=== PATIENT | male | born 1955 | race American Indian/Alaskan Native ===

== ENCOUNTER 2020-12-29 11:50 | Emergency (ER) | payer MEDICARE ==
[2020-12-29 12:28] VITALS: BP 138/85
[2020-12-29] MEDS ORDERED: TETANUS,DIPH,PERTUSS(ACELL) VACCINE 0.5 ML SYRINGE IM ONE (13:24)
--- NOTE | 2020-12-29 13:28 | Emergency Department Report ---
ED General Adult HPI - General Chief complaint: Extremity Injury, Upper Stated complaint: UPPER ABD AND LEFT SHOULDER BLEEDING Time Seen by Provider: 12/29/20 13:19 Source: patient Mode of arrival: Ambulatory Limitations: No Limitations - History of Present Illness Initial comments: 65 y/o male pt presents to ED w/ complaints of lacerations to his right arm and right chest occurring today. Patient states he was helping his move some boxes when he accidentally fell while carrying the boxes and subsequently cut himself. Cannot recall last tetanus immunization. Denies all other complaints at this time. - Related Data Previous Rx's Medication Instructions Recorded Last Taken Type Mupirocin [Bactroban 2%] 1 applic TP TID #1 tube 12/29/20 Unknown Rx Allergies Allergy/AdvReac Type Severity Reaction Status Date / Time No Known Allergies Allergy Unverified 12/29/20 12:18 ED Review of Systems ROS: Stated complaint: UPPER ABD AND LEFT SHOULDER BLEEDING Other details as noted in HPI Other: CARDIOVASCULAR: Negative for chest pain. PULMONARY: Negative for dyspnea. GASTROINTESTINAL: Negative for abdominal pain. MUSCULOSKELETAL: Negative for back pain and neck pain. NEUROLOGICAL: Negative for headache. INTEGUMENTARY: Positive for lacerations. ED Past Medical Hx - Past Medical History Hx Hypertension: Yes Hx Diabetes: Yes - Surgical History Past Surgical History?: Yes Additional Surgical History: bilateral knee, R shoulder replacement - Social History Smoking Status: Never Smoker Substance Use Type: None - Medications Home Medications: Home Medications Medication Instructions Recorded Confirmed Last Taken Type Mupirocin [Bactroban 2%] 1 applic TP TID #1 tube 12/29/20 Unknown Rx ED Physical Exam - General Limitations: No Limitations - Other Other exam information: General: Awake, appropriately interactive, no acute distress. Neck: Supple. Full range of motion intact. Cardiovascular: Regular rate and rhythm. Normal peripheral perfusion. Pulmonary: Equal chest rise. No respiratory distress. Patient is speaking normally without use of accessory muscles. Skin: 0.5 cm laceration involving skin and subcutaneous tissue to the medial aspect of the proximal right upper extremity. 0.5 cm laceration involving skin and subcutaneous tissue to the right chest wall inferior to the nipple. Neurological: No facial asymmetry. Speech is clear. Follows commands. Patient is alert and oriented. Musculoskeletal: Moves all four extremities spontaneously with normal range of motion. Psych: Cooperative. Appropriate mood and affect. ED Course Vital Signs 12/29/20 12:23 Temperature 98.6 F Pulse Rate 88 Respiratory 18 Rate Blood Pressure 138/85 O2 Sat by Pulse 99 Oximetry - Procedure Description Procedures done: Verbal consent was obtained from the patient. Hand hygiene was observed. The sites were identified. The areas were prepped with saline and Betadine. The wounds were explored for foreign body. No foreign body was found. Wound edges were approximated using accommodation of topical skin adhesive and Steri-Strips. Dressing applied. Patient tolerated procedure well without complications. ED Medical Decision Making - Medical Decision Making Differential diagnosis including but not limited to: laceration, abrasion, pn eumothorax, hemothorax Patient presents to the emergency department with multiple lacerations. Tetanus updated. He was offered sutures but politely refused. Patient expressed a preference for topical skin adhesive and Steri-Strips instead. Chest x-ray was recommended to evaluate for possible pneumothorax in the setting of puncture wound to the chest. Patient politely refused. No hypoxia, no respiratory distress. Risks of foregoing chest x-ray were explained to the patient, who expressed understanding. Lacerations repaired per patient request without complications. Discharged home with prescription for antibiotic ointment and referral to primary care provider for close outpatient follow-up. Patient expressed understanding and is agreeable to plan of care. Strict return precautions provided. Repeat exam is unremarkable and benign. History, exam, diagnostic testing, and current condition do not suggest worrisome pathology to warrant further testing, continued ED treatment, admission, or surgical evaluation at this point. Given the low probability of a significant medical illness, it would be more likely to result in harm than benefit to perform further testing at this stage. Discussed findings, presumptive diagnosis, need for follow-up and specific signs/symptoms that should prompt immediate return to the emergency department. Instructions were explained in detail to the patient in addition to giving written discharge information. Patient expressed understanding and was given the opportunity to ask questions, all of which were satisfactorily answered prior to discharge home. Critical care attestation.: If time is entered above; I have spent that time in minutes in the direct care of this critically ill patient, excluding procedure time. ED Disposition Clinical Impression: Laceration of right chest wall Laceration of right upper arm Qualifiers: Encounter type: initial encounter Qualified Code(s): S41.111A - Laceration without foreign body of right upper arm, initial encounter Disposition: 01 HOME / SELF CARE / HOMELESS Is pt being admited?: No Does the pt Need Aspirin: No Condition: Stable Instructions: Nonsutured Laceration Care Additional Instructions: Take Tylenol every 4 hours as needed for pain. Keep wounds clean and covered. Change dressing daily. Steri-Strips will fall off on their own within 1 week. Apply antibiotic ointment as directed. Follow-up with primary care provider this week. Call tomorrow to schedule an appointment. Return to the emergency department immediately for new or worsening symptoms. Prescriptions: Mupirocin [Bactroban 2%] 1 applic TP TID #1 tube Referrals: CLEMENTE VILLANUEVA MD [Staff Physician] - 3-5 Days Time of Disposition: 13:31
== END 2020-12-29 14:09 | disposition home or self-care (01) ==
LOC: ED 11:50
DX: S41.111A Laceration without foreign body of right upper arm, initial encounter (principal); S21.111A Laceration without foreign body of right front wall of thorax without penetration into thoracic cavity, initial encounter; I10 Essential (primary) hypertension; E11.8 Type 2 diabetes mellitus with unspecified complications; Z96.653 Presence of artificial knee joint, bilateral; Z96.611 Presence of right artificial shoulder joint; W18.30XA Fall on same level, unspecified, initial encounter; Y93.89 Activity, other specified; Y92.89 Other specified places as the place of occurrence of the external cause; Y99.8 Other external cause status
CPT/HCPCS: 90471; 90715; 99282

== ENCOUNTER 2020-12-30 09:53 | Emergency (ER) | payer MEDICARE ==
--- NOTE | 2020-12-30 10:36 | Emergency Department Report ---
- General Chief Complaint: Laceration/Recheck/Suture Stated Complaint: STITCHES CAME OUT Time Seen by Provider: 12/30/20 10:08 Source: patient Mode of arrival: Ambulatory Limitations: No Limitations - History of Present Illness Initial Comments: Patient is a 65-year-old male who presents emergency room stating that now he is ready to have sutures placed. Patient states that 2 nights ago he was walking down his steps and the lights were off. He states that he turned the corner after getting off the steps and there was a box that he did not see and he fell. He states he dropped a glass bowl. Patient was evaluated in the emergency department 12/29/2020 and was offered x-ray and sutures at that time but patient declined. Patient continues to decline x-ray. He denies any rib pain or difficulty breathing. He states that he now wants the area closed. He states he was having some bleeding without has resolved after he used [id number] salve. He denies any redness, swelling, purulent drainage, odor, fever, vomiting. No allergies to medications. He states his tetanus was updated. - Related Data Previous Rx's Medication Instructions Recorded Last Taken Type Mupirocin [Bactroban 2%] 1 applic TP TID #1 tube 12/29/20 Unknown Rx cephALEXin [Keflex] 500 mg PO QID 7 Days #28 capsule 12/30/20 Unknown Rx Allergies Allergy/AdvReac Type Severity Reaction Status Date / Time No Known Allergies Allergy Verified 12/30/20 10:03 ED Review of Systems ROS: Stated complaint: STITCHES CAME OUT Other details as noted in HPI Comment: All other systems reviewed and negative ED Past Medical Hx - Past Medical History Hx Hypertension: Yes Hx Diabetes: Yes - Surgical History Additional Surgical History: bilateral knee, R shoulder replacement - Social History Smoking Status: Never Smoker Substance Use Type: None - Medications Home Medications: Home Medications Medication Instructions Recorded Confirmed Last Taken Type Mupirocin [Bactroban 2%] 1 applic TP TID #1 tube 12/29/20 Unknown Rx cephALEXin [Keflex] 500 mg PO QID 7 Days #28 capsule 12/30/20 Unknown Rx ED Physical Exam - General Limitations: No Limitations General appearance: alert, in no apparent distress - Head Head exam: Present: atraumatic, normocephalic - Eye Eye exam: Present: normal appearance - ENT ENT exam: Present: mucous membranes moist - Neurological Exam Neurological exam: Present: alert, oriented X3 - Psychiatric Psychiatric exam: Present: normal affect, normal mood - Skin Skin exam: Present: warm, dry, other (1 cm laceration present to the right medial upper arm, 1 cm laceration present overlying the right anterior ribs, no bleeding, appears to be in the process of healing, no edema, no erythema, no increased warmth, FROM of the RUE, no rib ttp, no crepitus, no deformity) ED Course Vital Signs 12/30/20 12/30/20 10:46 10:57 Temperature 97.8 F 98.5 F Pulse Rate 87 83 Respiratory 16 16 Rate Blood Pressure 128/92 Blood Pressure 153/89 [Right] O2 Sat by Pulse 98 100 Oximetry ED Medical Decision Making - Medical Decision Making Patient is a 65-year-old male who presents emergency room stating that now he is ready to have sutures placed. Patient states that 2 nights ago he was walking down his steps and the lights were off. He states that he turned the corner after getting off the steps and there was a box that he did not see and he fell. He states he dropped a glass bowl. Patient was evaluated in the emergency department 12/29/2020 and was offered x-ray and sutures at that time but patient declined. Patient continues to decline x-ray. He denies any rib pain or difficulty breathing. He states that he now wants the area closed. He states he was having some bleeding without has resolved after he used [id number] salve. He denies any redness, swelling, purulent drainage, odor, fever, vomiting. No allergies to medications. He states his tetanus was updated. vss. on exam: 1 cm laceration present to the right medial upper arm, 1 cm laceration present overlying the right anterior ribs, no bleeding, appears to be in the process of healing, no edema, no erythema, no increased warmth, FROM of the RUE, no rib ttp, no crepitus, no deformity. lacerations have been greater than 12 hours, risk of infection too high for closure at this time, appears to be appropriately healing at this time and will have to heal via secondary intention. will place pt on keflex, to prevent infection, no signs of cellulitis or infection at this time. advised pt Please continue using ointment you were given during your last emergency room visit. Please take medication as prescribed. Please keep area clean and covered. Wash with antibacterial soap and water twice a day and pat dry. No hot tub or pool. Follow-up with your primary care doctor for reexamination. Return to emergency room for new or worsening symptoms. Critical care attestation.: If time is entered above; I have spent that time in minutes in the direct care of this critically ill patient, excluding procedure time. ED Disposition Clinical Impression: Laceration of right chest wall Laceration of right upper arm Qualifiers: Encounter type: subsequent encounter Qualified Code(s): S41.111D - Laceration without foreign body of right upper arm, subsequent encounter Disposition: HOME / SELF CARE / HOMELESS Is pt being admited?: No Does the pt Need Aspirin: No Condition: Stable Instructions: Laceration Care, Adult Additional Instructions: Please continue using ointment you were given during your last emergency room visit. Please take medication as prescribed. Please keep area clean and covered. Wash with antibacterial soap and water twice a day and pat dry. No hot tub or pool. Follow-up with your primary care doctor for reexamination. Return to emergency room for new or worsening symptoms. Prescriptions: cephALEXin [Keflex] 500 mg PO QID 7 Days #28 capsule Referrals: your, primary care doctor [Other] - 2-3 Days Time of Disposition: 10:39 Print Language: TELUGU
[2020-12-30 11:26] VITALS: BP 128/92
== END 2020-12-30 11:20 | disposition home or self-care (01) ==
LOC: ED 09:53
DX: S41.111D Laceration without foreign body of right upper arm, subsequent encounter (principal); S21.111D Laceration without foreign body of right front wall of thorax without penetration into thoracic cavity, subsequent encounter; I10 Essential (primary) hypertension; E11.8 Type 2 diabetes mellitus with unspecified complications; Z98.890 Other specified postprocedural states; W18.30XD Fall on same level, unspecified, subsequent encounter
CPT/HCPCS: 99281